=== PATIENT | female | born 1990 | race Caucasian/White ===

== ENCOUNTER 2016-10-05 21:03 | Emergency (ER) | payer OTHER ==
[2016-10-05 21:18] VITALS: BP 126/64; PULSE 70; RESP 16; TEMP 98.2; O2SAT 95
[2016-10-05] MEDS ORDERED: IBUPROFEN 200 MG TAB PO ONE (21:38)
[2016-10-05] MEDS ORDERED: ACETAMINOPHEN 325 MG TAB PO ONE (21:39)
[2016-10-05] MEDS ORDERED: AZITHROMYCIN 250 MG TAB PO ONE (21:40)
--- NOTE | 2016-10-05 21:55 | UCPHY ---
H & P Time Seen by Provider: 10/05/16 21:16 Patient Type: New HPI/ROS: This patient complains of frontal sinus pain described as pressure in nature peak intensity 02/09. She explains the mornings that is mild to moderate then progresses today. Symptoms feel similar to sinusitis she had 4 weeks ago that improved Amoxil but did seem to entirely resolved. She has associated mild pressure in her ears. She has occasional cough the attributes to postnasal drip and a mild sore throat. She reports minimal improvement from over-the- counter analgesics. She reports some dark appearing nasal discharge at times. Past Medical/Surgical History: Acute sinusitis 4 weeks ago or so per her report Social History: No recreational drugs. Rare alcohol Smoking Status: Former smoker Physical Exam: Physical Exam Vital signs are normal. General: No acute distress HEENT: Nose: Greenish discharge with swollen nasal mucosa and sinus tenderness to percussion bilateral frontal sinuses. Ears: External canals and tympanic membranes are clear with no erythema or abnormal findings bilaterally. Oropharynx: No erythema or exudates. No dysphonia. No drooling or stridor. Eyes: Pupils equal and react to light. Extraocular motions are intact. Optic fundi are normal bilaterally Neck: Supple with no meningismus. No lymphadenopathy. Lungs: Clear to auscultation bilaterally with no rales, rhonchi or wheeze. No respiratory distress. Cardiac: Regular rate and rhythm with no murmur gallop or rub Skin: No rash or pallor. Neuro: GCS of 15. Cranial nerves 2-12 intact. No sensory motor deficits. She has no pronator drift. Rapid hand movements are intact bilaterally Initial differential diagnosis: Acute sinusitis-recurrent, tension headache, viral URI with tension headache Constitutional: Initial Vital Signs Temperature (C) 36.8 C 10/05/16 21:16 Heart Rate 70 10/05/16 21:16 Respiratory Rate 16 10/05/16 21:16 Blood Pressure 126/64 H 10/05/16 21:16 O2 Sat (%) 95 10/05/16 21:16 O2 Delivery Mode Room Air Allergies/Adverse Reactions: No Known Allergies Allergy (Unverified 10/05/16 21:16) Home Medications: Medication Instructions Recorded Azithromycin [Zithromax] 250 mg PO DAILY #6 tab 10/05/16 Fluticasone Nasal [Flonase Nasal 2 sprays NASAL DAILY #1 mdi 10/05/16 [place] (RX)] MDM/Departure - MDM Medications Given: Discontinued Medications Acetaminophen (Tylenol) 975 mg PO EDNOW ONE Stop: 10/05/16 21:40 Last Admin: 10/05/16 21:48 Dose: 975 mg Azithromycin (Zithromax) 500 mg PO EDNOW ONE PRN Reason: Protocol Stop: 10/05/16 21:41 Last Admin: 10/05/16 21:48 Dose: 500 mg Ibuprofen (Motrin) 600 mg PO EDNOW ONE Stop: 10/05/16 21:39 Last Admin: 10/05/16 21:48 Dose: 600 mg ED Course/Re-evaluation: This patient appears clinically well despite her headache. I find no clinical evidence to suggest intracranial bleed, mass, [employer] infection other concerning findings. - Depart Disposition: Home, Routine, Self-Care Clinical Impression: Acute sinusitis Qualifiers: Sinusitis location: frontal Recurrence: recurrent Qualified Code(s): J01.11 - Acute recurrent frontal sinusitis Condition: Good Instructions: Sinusitis (ED) Additional Instructions: Diagnosis: Acute sinusitis Plan: Humidifier [id number] mg per 6 hours Tylenol in addition as needed for pain Flonase steroid nasal spray as prescribed Consider Afrin nasal spray [id number]-counter in addition for the 1st 2 days and then stop the Afrin but continue Flonase Zithromax antibiotic Guaifenesin [id number] mucolytic Return or go to the emergency department for any significant worsening despite the treatment plan Prescriptions: Azithromycin [Zithromax] 250 mg PO DAILY #6 tab Fluticasone Nasal [Flonase Nasal [place] (RX)] 2 sprays NASAL DAILY #1 mdi Referrals: NONE *PRIMARY CARE P,. [Primary Care Provider] - As per Instructions - PQRS PQRS Measurement: NA
== END 2016-10-05 22:10 | disposition home or self-care (01) ==
LOC: CED 21:03
DX: J01.11 Acute recurrent frontal sinusitis (principal); Z87.891 Personal history of nicotine dependence
CPT/HCPCS: 99203-PO; G0463-PO